=== PATIENT | female | born 1930 | race Caucasian/White ===

== ENCOUNTER 2017-07-26 22:19 | Inpatient (IN) | payer OTHER ==
[~2017-07-26] VITALS: Ht 167.6 cm; Wt 49.0 kg
[~2017-07-26 22:19] MED LIST: ACETAMINOPHEN325 MG PO; ASPIR 8181 MG PO; BACTRIM DS TAB1 EACH PO; CALCITONIN-SAL3.7 ML IH; CALCIUM 600 +1 EA10 PO; CALCIUM 600 +1 EA12 PO; CALCIUM 600 +1 EACH PO; CENTRUM SILVER1 EAC1 PO; COLACE100 MG PO; CULTURELLE CHE1 EACH PO; CULTURELLE1 EACH PO; CYMBALTA30 MG PO; ENSURE LIQUID237 ML PO; FERROUS GLUCON324 M1 PO; FERROUS GLUCON324 MG PO; FLUTICASONE PRO16 GM NS; IPRAT-ALBUT 0.5-3 ML IH; IPRAT-ALBUT 0.5-3 ML NEB; KLOR-CON-1010 MEQ PO; LEVAQUIN750 MG PO; LISINOPRIL2.5 MG PO; MAGNESIUM250 M1 PO; MAGNESIUM250 MG PO; METOPROLOL TART25 MG PO; MIACALCIN3.7 ML IH; NEURONTIN600 MG PO; NICOTINE TRANSD14 MG TOP; PERCOCET 10-321 EACH PO; PRILOSEC20 M1 PO; PROAIR HFA8.5 GM IH; PROBIOTIC1 EAC1 PO; SEROQUEL50 MG PO; STOOL SOFTENER250 MG PO; SURFAK240 MG PO; SYMBICORT 16010.2 GM IH; SYNTHROID100 MCG PO; SYNTHROID75 MCG PO; TYLENOL325 MG PO; VITAMIN B-12500 MCG PO; ZYRTEC10 MG PO
[2017-07-31] MEDS ORDERED: FLONASE ALLER15.8 ML NS (09:20)
[2017-07-31] MEDS ORDERED: ANORO ELLIPTA1 EACH IH (09:21)
[2017-07-31] MEDS ORDERED: ASPIRIN EC81 MG PO (09:21)
[2017-07-31] MEDS ORDERED: PROBIOTIC1 EAC1 PO (09:21)
[2017-07-31] MEDS ORDERED: CENTRUM SILVER1 EAC1 PO (09:22)
[2017-07-31] MEDS ORDERED: OMEPRAZOLE20 MG PO (09:22)
[2017-07-31] MEDS ORDERED: SYNTHROID75 MCG PO (09:23)
[2017-07-31] MEDS ORDERED: SYMBICORT 16010.2 GM IH (09:23)
[2017-07-31] MEDS ORDERED: ALBUTEROL2.5 MG/3 M NEB (09:24)
[2017-07-31] MEDS ORDERED: SEROQUEL50 MG PO (09:25)
[2017-07-31] MEDS ORDERED: CALCIUM 600 +1 EAC3 PO (09:25)
[2017-07-31] MEDS ORDERED: MAGNESIUM250 M1 PO (09:25)
[2017-07-31] MEDS ORDERED: ACETAMINOPHEN325 MG PO (09:26)
== END 2017-07-28 14:15 | disposition home or self-care (01) | DRG 872 ==
LOC: ER 22:19 → ICU 23:45 → ER 07-27 00:09 → MED 07-27 17:50
PROVIDERS: ADMIT Internal Medicine
DX: A41.9 Sepsis, unspecified organism (principal); N17.9 Acute kidney failure, unspecified; A08.39 Other viral enteritis; A08.11 Acute gastroenteropathy due to Norwalk agent; R65.20 Severe sepsis without septic shock; I95.9 Hypotension, unspecified; E86.0 Dehydration; R73.9 Hyperglycemia, unspecified; K21.9 Gastro-esophageal reflux disease without esophagitis; J44.9 Chronic obstructive pulmonary disease, unspecified; I48.0 Paroxysmal atrial fibrillation; Z99.81 Dependence on supplemental oxygen; E03.9 Hypothyroidism, unspecified; I73.9 Peripheral vascular disease, unspecified; J30.9 Allergic rhinitis, unspecified; R91.1 Solitary pulmonary nodule; E53.8 Deficiency of other specified B group vitamins; Z87.11 Personal history of peptic ulcer disease; Z79.82 Long term (current) use of aspirin; Z79.899 Other long term (current) drug therapy; Z88.5 Allergy status to narcotic agent; Z80.3 Family history of malignant neoplasm of breast; F17.210 Nicotine dependence, cigarettes, uncomplicated; Z87.01 Personal history of pneumonia (recurrent)
CPT/HCPCS: 36415; 87507; 97161-GP; 97165; J1650; J3370

== ENCOUNTER 2017-07-26 22:19 | Emergency (ER) | payer OTHER ==
[2017-07-31] MEDS ORDERED: FLONASE ALLER15.8 ML NS (09:20)
[2017-07-31] MEDS ORDERED: ASPIRIN EC81 MG PO (09:21)
[2017-07-31] MEDS ORDERED: ANORO ELLIPTA1 EACH IH (09:21)
[2017-07-31] MEDS ORDERED: PROBIOTIC1 EAC1 PO (09:21)
[2017-07-31] MEDS ORDERED: CENTRUM SILVER1 EAC1 PO (09:22)
[2017-07-31] MEDS ORDERED: OMEPRAZOLE20 MG PO (09:22)
[2017-07-31] MEDS ORDERED: SYMBICORT 16010.2 GM IH (09:23)
[2017-07-31] MEDS ORDERED: SYNTHROID75 MCG PO (09:23)
[2017-07-31] MEDS ORDERED: ALBUTEROL2.5 MG/3 M NEB (09:24)
[2017-07-31] MEDS ORDERED: SEROQUEL50 MG PO (09:25)
[2017-07-31] MEDS ORDERED: MAGNESIUM250 M1 PO (09:25)
[2017-07-31] MEDS ORDERED: CALCIUM 600 +1 EAC3 PO (09:25)
[2017-07-31] MEDS ORDERED: ACETAMINOPHEN325 MG PO (09:26)
== END 2017-07-27 00:08 | disposition critical access hospital (66) ==
LOC: ER 22:19
DX: R19.7 Diarrhea, unspecified (principal); N17.9 Acute kidney failure, unspecified; I95.9 Hypotension, unspecified; J44.9 Chronic obstructive pulmonary disease, unspecified; E03.9 Hypothyroidism, unspecified; I10 Essential (primary) hypertension; D64.9 Anemia, unspecified; F17.210 Nicotine dependence, cigarettes, uncomplicated; Z79.899 Other long term (current) drug therapy; Z88.5 Allergy status to narcotic agent
CPT/HCPCS: 36415; 87507; 96361; 96365; 96368; J3370